=== PATIENT | male | born 1990 | race Caucasian/White ===

== ENCOUNTER 2024-06-23 21:19 | Inpatient (IN) | payer OTHER ==
[~2024-06-23] VITALS: Ht 172.7 cm; Wt 84.0 kg
[2024-06-23] MEDS: HALOPERIDOL LACTATE 5MG/ML VIAL IM ONE (22:15)
[2024-06-23] MEDS: diphenhydrAMINE 50MG/ML VIAL IM ONE (22:15)
[2024-06-23] MEDS: LORazepam 2 MG/ML 1ML VIAL IM ONE (22:15)
[2024-06-23 23:11] LABS: HEMATOCRIT 44.5 % (42.0-52.0); HEMOGLOBIN 15.5 g/dl (13.5-17.5); MEAN CORPUSCULAR HEMOGLOBIN 30.7 pg (27.0-33.0); MEAN CORPUSCULAR HGB CONC 34.8 g/dl (32.0-36.5); MEAN CORPUSCULAR VOLUME 88.1 fl (80.0-96.0); PLATELET COUNT, AUTOMATED 383 10^3/uL (150-450); RED BLOOD COUNT 5.05 10^6/uL (4.30-6.10); WHITE BLOOD COUNT 8.5 10^3/uL (4.0-10.0)
[2024-06-23 23:33] LABS: ETHYL ALCOHOL (ETHANOL) < 0.003 % (0.000-0.010)
[2024-06-23 23:35] LABS: ALBUMIN 3.9 G/DL (3.2-5.2); ALKALINE PHOSPHATASE 60 U/L (40-129); ALT/SGPT 21 U/L (7.0-40); AST/SGOT 28 U/L (<34); BILIRUBIN,DIRECT 0.2 MG/DL (<0.4); BILIRUBIN,TOTAL 0.6 MG/DL (0.3-1.2); BLOOD UREA NITROGEN 21 MG/DL (9-23); CALCIUM LEVEL 9.3 MG/DL (8.5-10.1); CARBON DIOXIDE LEVEL 22 MMOL/L (20-31); CHLORIDE LEVEL 110 MMOL/L (98-107); GLOMERULAR FILTRATION RATE > 60.0 (>60); GLUCOSE, FASTING 105 MG/DL (60-100); POTASSIUM SERUM 3.7 MMOL/L (3.5-5.1); SALICYLATE LEVEL < 3.0 MG/DL (<30); SODIUM LEVEL 144 MMOL/L (136-145)
[2024-06-23 23:38] LABS: THYROID STIMULATING HORMONE 0.731 uIU/ML (0.55-4.78)
[2024-06-24] MEDS ORDERED: HOME MED LIST COMPLETE! XX SCH
[2024-06-24] MEDS ORDERED: ALPR0.5T3 PO
[2024-06-24 11:36] LABS: AMPHETAMINES LEVEL URINE NEGATIVE (NEGATIVE); BARBITURATES URINE NEGATIVE (NEGATIVE); COCAINE METABOLITE URINE NEGATIVE (NEGATIVE); PHENCYCLIDINE URINE NEGATIVE (NEGATIVE)
[2024-06-24 11:37] LABS: BENZODIAZEPINES URINE POSITIVE (NEGATIVE); CANNABINOIDS URINE POSITIVE (NEGATIVE); METHADONE URINE NEGATIVE (NEGATIVE); OPIATES URINE NEGATIVE (NEGATIVE)
[2024-06-24] MEDS ORDERED: traZODone 50 MG TAB PO PRN (21:00)
[2024-06-24] MEDS ORDERED: IBUPROFEN 400MG TAB PO PRN (21:00)
[2024-06-24] MEDS ORDERED: ACETAMINOPHEN 325 MG TAB PO PRN (21:00)
[2024-06-24] MEDS ORDERED: MOM 30ML SUSPENSION UDC PO PRN (21:00)
[2024-06-24] MEDS ORDERED: MAALOX 30 ML SUSP *UDC PO PRN (21:00)
[2024-06-25] MEDS: NICOTINE 14 MG/24 HR TRANSDERMAL TD SCH (09:00)
[2024-06-25] MEDS: OLANZapine ORAL DISINTEGRATING TAB 5MG PO SCH (09:00)
[2024-06-25] MEDS: OLANZapine 5 MG TAB PO PRN (09:21)
[2024-06-25 16:10] VITALS: BP 142/96; TEMP 97.6; O2SAT 100
[2024-06-25] MEDS ORDERED: OLANZapine 5 MG TAB PO SCH (21:00)
[2024-06-26] MEDS: OLANZapine ORAL DISINTEGRATING TAB 5MG PO SCH (09:23)
[2024-06-26 17:06] VITALS: BP 130/82; TEMP 97.8; O2SAT 99
[2024-06-26] MEDS: diphenhydrAMINE 25MG CAP PO PRN (18:10)
[2024-06-27 06:58] LABS: CHOLESTEROL RISK RATIO 3.96 (<5); HDL CHOLESTEROL 32.5 MG/DL (>40); LDL CHOLESTEROL 73.3 MG/DL (<100); NON-HDL-C 96.5 MG/DL
[2024-06-27 15:37] VITALS: BP 125/86; TEMP 97.1; O2SAT 96
[2024-06-28 16:15] VITALS: BP 146/80; TEMP 97.8; O2SAT 98
[2024-06-29 06:13] VITALS: BP 158/92; TEMP 97; O2SAT 99
[2024-06-29 15:48] VITALS: BP 158/84; TEMP 97; O2SAT 99
[2024-06-29] MEDS: traZODone 50 MG TAB PO SCH (21:15)
[2024-06-30 06:47] VITALS: BP 134/88; TEMP 96.9; O2SAT 99
[2024-06-30] MEDS ORDERED: OLAN1TAB16 PO (09:15)
[2024-06-30] MEDS ORDERED: TRAZ-252 PO (09:15)
[2024-06-30] MEDS ORDERED: OLAN5ZYD PO (09:15)
== END 2024-06-30 12:44 | disposition home or self-care (01) | DRG 751 ==
LOC: M ED 21:19 → M ED INP 06-24 13:52 → M PSY 06-24 15:40
PROVIDERS: ADMIT Psychiatry & Neurology Psychiatry; ATTEND Psychiatry & Neurology Psychiatry
DX: F29 Unspecified psychosis not due to a substance or known physiological condition (principal); F84.0 Autistic disorder; F12.10 Cannabis abuse, uncomplicated; Z88.0 Allergy status to penicillin; Z79.899 Other long term (current) drug therapy; Z78.1 Physical restraint status